=== PATIENT | male | born 1995 | race Caucasian/White ===

== ENCOUNTER 2018-04-23 21:42 | Emergency (ER) | payer SELFPAY ==
[~2018-04-23] VITALS: Ht 180.3 cm; Wt 86.4 kg
[2018-04-23 21:49] VITALS: BP 141/78
[2018-04-23] MEDS ORDERED: ALPR1TAB7 PO (21:57)
== END 2018-04-23 22:10 | disposition left against medical advice (07) ==
LOC: EMS 21:43
DX: M25.532 Pain in left wrist (principal); F41.9 Anxiety disorder, unspecified; F17.210 Nicotine dependence, cigarettes, uncomplicated; F12.90 Cannabis use, unspecified, uncomplicated; Z53.21 Procedure and treatment not carried out due to patient leaving prior to being seen by health care provider